=== PATIENT | female | born 1990 | race African-American/Black ===

== ENCOUNTER 2016-12-01 06:44 | Emergency (ER) ==
[2016-12-01 06:47] VITALS: BP 131/87; TEMP 97.6; BMI 24.2
--- NOTE | 2016-12-01 06:55 | ED.PDOC ---
General ED Provider: Dr. KELLE WINCHESTER-ER Chief Complaint: Tooth Problem Stated Complaint: my tooth hurts Time Seen by Physician: 06:52 Mode of Arrival: Walk-In Information Source: Patient Exam Limitations: No limitations Nursing and Triage Documentation Reviewed and Agree: Yes EENT Complaint Exam - Dental/Oral Complaint/Exam Mechanism of Injury: No known trauma Onset/Duration: 2 days Symptoms Are: Still present Timing: Constant Initial Severity: Mild Current Severity: Moderate Location: left premolar Character: Reports: Dull, Aching, Throbbing Aggravating: Reports: Heat, Cold, Chewing Alleviating: Reports: None Associated Signs and Symptoms: Reports: Swelling. Denies: Discharge, Fever, Foul odor, Foul taste in mouth Related History: Reports: Similar episode, Previous tooth problem Cardiac Risk Factors: Reports: Smoking Dental/Oral Surgical History: Reports: None Tooth Findings: Present: Percussion tenderness, Gross caries Cervical Lymphadenopathy Present: No Facial Swelling Present: No Bleeding Present: No Oropharynx Findings: Absent: Clots, Active bleeding Septal Hematoma: No Foreign Body Present: No Dysphagia Present: No Drooling Present: No Asymmetrical Tonsillar Swelling Present: No Uvula Midline: Yes Val-tonsillar Fluctuence: No Trismus Present: No Palatal Petechiae Present: No Scarlatinaform Rash Present: No Differential Diagnoses: Dental Caries Review of Systems - Review Of Systems Constitutional: Reports: No symptoms Eyes: Reports: No symptoms Ears, Nose, Mouth, Throat: Reports: Mouth pain Respiratory: Reports: No symptoms Cardiac: Reports: No symptoms GI: Reports: No symptoms : Reports: No symptoms Musculoskeletal: Reports: No symptoms Skin: Reports: No symptoms Neurological: Reports: No symptoms Endocrine: Reports: No symptoms Hematologic/Lymphatic: Reports: No symptoms All Other Systems: Reviewed and Negative Past Medical History - Past Medical History Endocrine: Reports: None Cardiovascular: Reports: None Respiratory: Reports: None Hematological: Reports: None Gastrointestinal: Reports: None Genitourinary: Reports: None Neuro/Psych: Reports: Anxiety Musculoskeletal: Reports: None Cancer: Reports: None Last Menstrual Period: depo - Surgical History General Surgical History: Reports: None - Family History Family History: Reports: Unknown - Social History Smoking Status: Never smoker Hx Substance Use: No Alcohol Screening: None Physical Exam - Physical Exam Appearance: Well-appearing, No pain distress, Well-nourished Pain Distress: Moderate Eyes: KRYSTINA, EOMI, Conjunctiva clear ENT: Ears normal, Nose normal, Oropharynx normal Neck: Supple Respiratory: Airway patent, Breath sounds clear, Breath sounds equal, Respirations nonlabored Cardiovascular: RRR, Pulses normal, No rub, No murmur GI/: Soft, Nontender, No masses, Bowel sounds normal, No Organomegaly Musculoskeletal: Normal strength, ROM intact, No edema, No calf tenderness Skin: Warm, Dry, Normal color Neurological: Sensation intact, Motor intact, Reflexes intact, Cranial nerves intact, Alert, Oriented Psychiatric: Affect appropriate, Mood appropriate Critical Care Note - Critical Care Note Total Time (mins): 0 Course - Course Vital Signs: Temp Pulse Resp BP Pulse Ox 12/01/16 06:44 97.6 F 97 H 18 131/87 99 Departure - Departure Time of Disposition: 06:54 Disposition: HOME SELF-CARE Discharge Problem: Dental abscess Instructions: Dental Abscess (ED) Condition: Good Pt referred to PMD for follow-up: Yes Additional Instructions: augmentin 875mg bid x 7days--norco 5mg q 4hrs prn pain #10--f/u dentist Allergies/Adverse Reactions: Allergies No Known Allergies Allergy (Verified 12/01/16 06:47) Home Medications: Ambulatory Orders Naproxen [Naprosyn] 500 mg PO Q12HR PRN #30 tablet 09/30/15 Disposition Discussed With: Patient
== END 2016-12-01 07:04 | disposition home or self-care (01) ==
LOC: ED 06:44
DX: K04.7 Periapical abscess without sinus (principal); K02.7 Dental root caries; F17.210 Nicotine dependence, cigarettes, uncomplicated
CPT/HCPCS: 99282

== ENCOUNTER 2018-07-14 05:47 | Emergency (ER) | payer OTHER ==
[2018-07-14 05:59] VITALS: BP 123/86; TEMP 97.4; BMI 25.3
[2018-07-14] MEDS ORDERED: DUONEB NEB STA (06:09)
[2018-07-14] MEDS ORDERED: SOLU-MEDROL 125 MG IVP STA (06:10)
--- NOTE | 2018-07-14 07:06 | ED.PDOC ---
General <ANNABELLAFranciscoKELLE TEJADA - Last Filed: 07/14/18 08:18> Stated Complaint: shortness of breath for the past day, worse tonight with cough productive of yellow sputum and sinus drainage. Time Seen by Physician: 06:00 Mode of Arrival: Walk-In Information Source: Patient Exam Limitations: No limitations Nursing and Triage Documentation Reviewed and Agree: Yes Does patient meet sepsis criteria?: No If yes, has appropriate treatment been initiated?: Yes System Inflammatory Response Syndrome: Pulse >90 BPM, Resp >20/Minute <TARIK POTTS - Last Filed: 07/15/18 06:01> ED Provider: Dr. TARIK POTTS Chief Complaint: Respiratory Complaint Sepsis Protocol: For patient's 13 years and over: Temp is 96.8 and below OR 101 and greater Pulse >90 BPM Resp >20/minute Acutely Altered Mental Status Are patient's symptoms suggestive of a new infection, such as: -Pneumonia -Skin, Soft Tissue -Endocarditis -UTI -Bone, Joint Infection -Implantable Device -Acute Abdominal Infection -Wound Infection -Meningitis -Blood Stream Catheter Infection -Unknown Respiratory Complaint Exam - Shortness of Air Complaint/Exam Onset/Duration: 1 day Symptoms Are: Still present Timing: Constant Initial Severity: Mild Current Severity: Moderate Character: Reports: Dyspnea at rest Aggravating: Reports: Weather Alleviating: Reports: None Associated Signs and Symptoms: Reports: Cough, Wheezing, Chest pain with cough ( chest tightness ), Rapid breathing, Labored breathing Pulmonary Embolism Risk Factors: Reports: None Cardiac Risk Factors: Reports: None Pseudomonas Risk Factors: Reports: None Tuberculosis Risk Factors: Reports: None Home Oxygen Use: No Recent Stress Test: No Recent Echo/LV Function: No Respiratory Distress: Moderate Stridor Present: No Tracheal Deviation: No Subcutaneous Emphysema: No Accessory Muscle Use: No Retractions: Not Present Diminished Breath Sounds: Yes Prolonged Expiratory Phase: No Unable to Speak Full Sentences: Yes Fatigue: No Leg Swelling: No Hansel's Sign Present: No Grunting Respirations: No Kussmaul Respirations: No Differential Diagnoses: Pneumonia, Bronchitis, Sinusitis, URI <TARIK POTTS - Last Filed: 07/15/18 06:01> Review of Systems - Review Of Systems Constitutional: Reports: No symptoms Eyes: Reports: No symptoms Ears, Nose, Mouth, Throat: Reports: Nose discharge Respiratory: Reports: Cough Cardiac: Reports: No symptoms GI: Reports: No symptoms : Reports: No symptoms Musculoskeletal: Reports: No symptoms Skin: Reports: No symptoms Neurological: Reports: No symptoms Endocrine: Reports: No symptoms Hematologic/Lymphatic: Reports: No symptoms All Other Systems: Reviewed and Negative <GILBERTKATHERYNTARIK Filed: 07/15/18 06:01> Past Medical History - Past Medical History Endocrine: Reports: None Cardiovascular: Reports: None Respiratory: Reports: None Hematological: Reports: None Gastrointestinal: Reports: None Genitourinary: Reports: None Neuro/Psych: Reports: Anxiety Musculoskeletal: Reports: None Cancer: Reports: None Last Menstrual Period: PERIODS ARE IRREGULAR AFTER , DELIVERED IN - Surgical History General Surgical History: Reports: None - Family History Family History: Reports: Unknown - Social History Smoking Status: Former smoker Hx Substance Use: No Alcohol Screening: Occasionally - Immunizations Tetanus Shot up to Date: Yes <TARIK POTTS Filed: 07/15/18 06:01> Physical Exam - Physical Exam Appearance: Well-appearing, No pain distress, Well-nourished Eyes: KRYSTINA, EOMI, Conjunctiva clear ENT: Ears normal, Nose normal, Oropharynx normal Neck: Supple Respiratory: Airway patent Cardiovascular: RRR, Pulses normal, No rub, No murmur GI/: Soft, Nontender, No masses, Bowel sounds normal, No Organomegaly Musculoskeletal: Normal strength, ROM intact, No edema, No calf tenderness Skin: Warm, Dry, Normal color Neurological: Sensation intact, Motor intact, Reflexes intact, Cranial nerves intact, Alert, Oriented Psychiatric: Affect appropriate, Mood appropriate <KELLE AMBROCIO Last Filed: 07/14/18 08:18> - Physical Exam Appearance: Ill-appearing Ill-appearing: Moderate Pain Distress: Mild Eyes: KRYSTINA, EOMI, Conjunctiva clear Neck: Supple Respiratory: Breath sounds diminished, Rhonchi (on the right ) Cardiovascular: No rub, No murmur, Tachycardia GI/: Soft, Nontender, No masses, Bowel sounds normal, No Organomegaly Musculoskeletal: Normal strength, ROM intact, No edema, No calf tenderness Skin: Warm, Dry, Normal color Neurological: Alert, Oriented Psychiatric: Anxious <DELROYTARIK Filed: 07/15/18 06:01> Interpretation - Radiology Interpretation Radiology Interpretation By: Radiologist Radiology Results: Negative Exam Interpreted: CXR <KELLE AMBROCIO Last Filed: 07/14/18 08:18> Re-Evaluation - Re-Evaluation Time of Re-Evaluation: 08:19 Status: Improved Vital Signs Stable: Yes Pain Level: 0 Appearance: NAD Lungs: Clear Skin: Warm and Dry Neuro: Alert and Oriented X3 CV: RRR <KELLE AMBROCIO - Last Filed: 07/14/18 08:18> Physician Notification - Case Discussed Endorsed To/Discussed With: Dr Rowan Time of Discussion: 07:19 <TARIK POTTS - Last Filed: 07/15/18 06:01> Critical Care Note - Critical Care Note Total Time (mins): 30 <TARIK POTTS - Last Filed: 07/15/18 06:01> Course - Course Hematology/Chemistry: 07/14/18 06:15 07/14/18 06:15 <KELLE AMBROCIO - Last Filed: 07/14/18 08:18> - Course Hematology/Chemistry: 07/14/18 06:15 07/14/18 06:15 <TARIK POTTS - Last Filed: 07/15/18 06:01> - Course Orders, Labs, Meds: Lab Review 07/14/18 07/14/18 07/14/18 06:09 06:15 06:15 WBC 6.20 RBC 4.66 Hgb 12.3 Hct 37.9 MCV 81.3 MCH 26.4 L MCHC 32.5 RDW Coeff of Jackie 16.8 H Plt Count 235 Immature Gran % (Auto) 0.2 Neut % (Auto) 52.3 Lymph % (Auto) 37.3 Imperial % (Auto) 8.1 Eos % (Auto) 1.6 Baso % (Auto) 0.5 Immature Gran # (Auto) 0.0 Neut # (Auto) 3.3 Lymph # (Auto) 2.3 Imperial # (Auto) 0.5 Eos # (Auto) 0.1 Baso # (Auto) 0.0 D-Dimer (Manual) Puncture Site Rrad O2 Saturation 96.0 ABG pH 7.422 ABG pCO2 35.9 ABG pO2 83.0 L ABG HCO3 23.4 ABG Total CO2 24 ABG Base Excess -1 Jed Test + FiO2 % 21.0 Sodium 136.0 L Potassium 4.00 Chloride 106.1 Carbon Dioxide 24.7 Anion Gap 9.20 BUN 10.0 Creatinine 0.58 L Estimated GFR (MDRD) 150.00 BUN/Creatinine Ratio 17.24 Glucose 109.3 H Calcium 8.81 Total Bilirubin 0.42 AST 24.4 ALT 27.9 Alkaline Phosphatase 79.0 Total Creatine Kinase 41.0 Troponin I < 0.012 Total Protein 6.83 Albumin 3.85 Globulin 2.98 Albumin/Globulin Ratio 1.29 Influ A Molecular Assay Influ B Molecular Assay 07/14/18 07/14/18 06:15 07:37 WBC RBC Hgb Hct MCV MCH MCHC RDW Coeff of Jackie Plt Count Immature Gran % (Auto) Neut % (Auto) Lymph % (Auto) Imperial % (Auto) Eos % (Auto) Baso % (Auto) Immature Gran # (Auto) Neut # (Auto) Lymph # (Auto) Imperial # (Auto) Eos # (Auto) Baso # (Auto) D-Dimer (Manual) 487.64 Puncture Site O2 Saturation ABG pH ABG pCO2 ABG pO2 ABG HCO3 ABG Total CO2 ABG Base Excess Jed Test FiO2 % Sodium Potassium Chloride Carbon Dioxide Anion Gap BUN Creatinine Estimated GFR (MDRD) BUN/Creatinine Ratio Glucose Calcium Total Bilirubin AST ALT Alkaline Phosphatase Total Creatine Kinase Troponin I Total Protein Albumin Globulin Albumin/Globulin Ratio Influ A Molecular Assay Negative by naat Influ B Molecular Assay Negative by naat Orders Category Date Time Status ABG DRAW REQUEST Stat CARDIO 07/14/18 06:10 Completed EKG-(ED ONLY) Stat CARDIO 07/14/18 06:09 Completed NEBULIZER TREATMENT Stat CARDIO 07/14/18 06:10 Completed ED IV/MEDIPORT/POWERPORT .ONCE EMERGENCY 07/14/18 06:09 Active ABG Stat LAB 07/14/18 06:09 Completed CBC W/ AUTO DIFF Stat LAB 07/14/18 06:15 Completed COMPREHENSIVE METABOLIC PANEL Stat LAB 07/14/18 06:15 Completed CREATINE KINASE Stat LAB 07/14/18 06:15 Completed D-DIMER Stat LAB 07/14/18 06:15 Completed FLU A/B MOLECULAR Stat LAB 07/14/18 07:37 Completed TROPONIN I Stat LAB 07/14/18 06:15 Completed 0.9 % Sodium Chloride [Saline Flush] MEDS 07/14/18 06:09 Discontinued 1 syr IVF PRN PRN Ipratropium/Albuterol Neb [Duoneb] MEDS 07/14/18 06:09 Discontinued 1 vial NEB ONCE STA Methylprednisolone Sod Succ/Pf [Solu-Medrol 125 mg] MEDS 07/14/18 06:10 Discontinued 125 mg IVP ONCE STA CHEST, 2 VIEWS PA & LAT Stat RADS 07/14/18 07:16 Completed Medications Discontinued Medications Generic Name Dose Route Start Last Admin Trade Name Chacho PRN Reason Stop Dose Admin Albuterol/Ipratropium 1 vial 07/14/18 06:09 07/14/18 06:38 Duoneb NEB 07/14/18 06:10 1 vial ONCE STA Administration Methylprednisolone Sodium Succinate 125 mg 07/14/18 06:10 07/14/18 06:25 Solu-Medrol 125 Mg IVP 07/14/18 06:11 125 mg ONCE STA Administration Sodium Chloride 1 syr 07/14/18 06:09 07/14/18 06:26 Saline Flush IVF 1 syr PRN PRN Administration To flush IV Vital Signs: Temp Pulse Resp BP Pulse Ox 07/14/18 05:47 97.4 F L 114 H 28 H 123/86 98 Departure - Departure Time of Disposition: 08:19 Pt referred to PMD for follow-up: Yes IPMP verified?: No Disposition Discussed With: Patient <KELLE AMBROCIO - Last Filed: 07/14/18 08:18> - Departure Pt referred to PMD for follow-up: Yes Disposition Discussed With: Patient <TARIK POTTS - Last Filed: 07/15/18 06:01> - Departure Disposition: HOME SELF-CARE Discharge Problem: Bronchitis Instructions: Acute Bronchitis (ED), Bronchospasm (ED) Condition: Stable Additional Instructions: stop smoking and dont get exposed to smoke==---augmentin 875mg bid x 7 days -- prednisone 20mg x 3 days then 10mg x 2 days then 5mg x 2 days--mucinex 600mg bid #30---albuterol inhaler 2 puffs qid --recheck with [facility] in 1-2 days or return if symptoms worsen Allergies/Adverse Reactions: Allergies No Known Allergies Allergy (Verified 07/14/18 05:59) Home Medications: Ambulatory Orders Naproxen [Naprosyn] 500 mg PO Q12HR PRN #30 tablet 09/30/15 Buspirone HCl 10 mg PO BID 07/14/18 Sertraline HCl 25 mg PO BEDTIME 07/14/18
--- NOTE | 2018-07-14 08:09 | DI ---
EXAM: PA and lateral views of the chest HISTORY: Cough COMPARISON: Chest x-ray 10/01/2008 FINDINGS: The cardiomediastinal silhouette is unchanged. There is no pneumothorax or pleural effusi on. There is no consolidation, nodule or mass. There is bilateral reticular ground-glass opacities a nd mild central lower lobe airway thickening. The osseous structures are unremarkable. IMPRESSION: Central lower lobe airway thickening and ground-glass suggestive of bronchitis bronchiol itis.
== END 2018-07-14 08:32 | disposition home or self-care (01) ==
LOC: ED 05:47
DX: J40 Bronchitis, not specified as acute or chronic (principal)
CPT/HCPCS: 36415; 80053; 82550; 82803; 84484; 85025; 85379; 87502; 93005; 93010; 94640; 96374; 99283

== ENCOUNTER 2018-09-11 08:40 | Outpatient (CLI) ==
[2018-07-19 08:58] VITALS: BMI 25.8
[2018-09-11 09:24] VITALS: BP 102/73; TEMP 97.6
[2018-09-11] MEDS ORDERED: HEPARIN 500 UNIT/5 ML (PORT ACCESS TRAY ONLY) IVF ONE (09:28)
[2018-09-11] MEDS ORDERED: SALINE FLUSH (PORT ACCESS TRAY USE ONLY) IVF ONE (09:29)
== END 2018-09-11 08:41 | disposition home or self-care (01) ==
LOC: OPMED 08:40
PROVIDERS: ATTEND Internal Medicine
DX: I50.21 Acute systolic (congestive) heart failure (principal); F41.9 Anxiety disorder, unspecified; I26.99 Other pulmonary embolism without acute cor pulmonale; I50.20 Unspecified systolic (congestive) heart failure; I42.8 Other cardiomyopathies; I50.43 Acute on chronic combined systolic (congestive) and diastolic (congestive) heart failure
CPT/HCPCS: 36415; 80053; 80061; 84443; 85025; 85610

== ENCOUNTER 2018-09-18 08:15 | Outpatient (CLI) ==
[2018-07-19 08:58] VITALS: BMI 25.8
[2018-09-18 08:55] VITALS: BP 101/70; TEMP 97.5
== END 2018-09-18 08:16 | disposition home or self-care (01) ==
LOC: LAB 08:15 → OPMED 08:16
PROVIDERS: ATTEND Internal Medicine
DX: I26.99 Other pulmonary embolism without acute cor pulmonale (principal); I50.20 Unspecified systolic (congestive) heart failure; I50.21 Acute systolic (congestive) heart failure; I42.8 Other cardiomyopathies; I50.43 Acute on chronic combined systolic (congestive) and diastolic (congestive) heart failure
CPT/HCPCS: 36415; 80048; 85027; 85610

== ENCOUNTER 2018-09-19 13:44 | Emergency (ER) ==
[2018-09-19 13:47] VITALS: BP 100/65; TEMP 97.8; BMI 23.1
--- NOTE | 2018-09-19 14:32 | ED.PDOC ---
General ED Provider: Dr. KELLE ARRIAZA Chief Complaint: Non-specific Complaint Stated Complaint: Hx having Central Line. Recently dx Cardiomyopathy post in June 2018. Dressing changed 2 days ago. Worried their appears like there is some drainage and shes worried about possible infection. Received IV Dobutamine at home, Time Seen by Physician: 14:10 Mode of Arrival: Walk-In Information Source: Patient, Family Exam Limitations: No limitations Primary Care Provider: SHEELA ALDRIDGE Referred to ED by: PCP Nursing and Triage Documentation Reviewed and Agree: Yes Does patient meet sepsis criteria?: No If yes, has appropriate treatment been initiated?: No System Inflammatory Response Syndrome: Not Applicable Sepsis Protocol: For patient's 13 years and over: Temp is 96.8 and below OR 101 and greater Pulse >90 BPM Resp >20/minute Acutely Altered Mental Status Are patient's symptoms suggestive of a new infection, such as: -Pneumonia -Skin, Soft Tissue -Endocarditis -UTI -Bone, Joint Infection -Implantable Device -Acute Abdominal Infection -Wound Infection -Meningitis -Blood Stream Catheter Infection -Unknown Review of Systems - Review Of Systems Constitutional: Reports: No symptoms Eyes: Reports: No symptoms Ears, Nose, Mouth, Throat: Reports: No symptoms Respiratory: Reports: No symptoms Cardiac: Reports: No symptoms GI: Reports: No symptoms : Reports: No symptoms Musculoskeletal: Reports: No symptoms Skin: Reports: No symptoms Neurological: Reports: No symptoms Endocrine: Reports: No symptoms Hematologic/Lymphatic: Reports: No symptoms All Other Systems: Reviewed and Negative Past Medical History - Past Medical History Previously Healthy: Yes Endocrine: Reports: None Cardiovascular: Reports: None, Other (cardiomyopathy and chf) Respiratory: Reports: None Hematological: Reports: None Gastrointestinal: Reports: None Genitourinary: Reports: None Neuro/Psych: Reports: Anxiety Musculoskeletal: Reports: None Cancer: Reports: None Last Menstrual Period: [id number] - Surgical History General Surgical History: Reports: None - Family History Family History: Reports: Unknown - Social History Smoking Status: Former smoker Hx Substance Use: No Alcohol Screening: Occasionally - Immunizations Tetanus Shot up to Date: No Physical Exam - Physical Exam Appearance: Well-appearing, No pain distress, Well-nourished Ill-appearing: None Pain Distress: None Eyes: KRYSTINA, EOMI, Conjunctiva clear ENT: Ears normal, Nose normal, Oropharynx normal Neck: Supple Respiratory: Airway patent, Breath sounds clear, Breath sounds equal, Respirations nonlabored Cardiovascular: RRR, Pulses normal, No rub, No murmur GI/: Soft, Nontender, No masses, Bowel sounds normal, No Organomegaly Musculoskeletal: Normal strength, ROM intact, No edema, No calf tenderness Skin: Warm (At site of Central line rt ant chest wall, no redness/scant serous drainage. no surrounding erythema), Dry, Normal color Neurological: Sensation intact, Motor intact, Reflexes intact, Cranial nerves intact, Alert, Oriented Psychiatric: Affect appropriate, Mood appropriate Critical Care Note - Critical Care Note Total Time (mins): 0 Course - Course Vital Signs: Temp Pulse Resp BP Pulse Ox 09/19/18 13:44 97.8 F 130 H 18 100/65 96 FLORENCIA Risk Score FLORENCIA Risk Score: Risk Score Odds of by 30D 0 0.1 (0.1-0.2) 1 0.3 (0.2-0.3) 2 0.4 (0.3-0.5) 3 0.7 (0.6-0.9) 4 1.2 (1.0-1.5) 5 2.2 (1.9-2.6) 6 3.0 (2.5-3.6) 7 4.8 (3.8-6.1) Departure - Departure Time of Disposition: 14:45 Disposition: HOME SELF-CARE Discharge Problem: cardiomyopathy, Dressing change Condition: Good Pt referred to PMD for follow-up: Yes IPMP verified?: Yes Additional Instructions: Follow with classroom teacher Report any changes in dressing or wound drainage Allergies/Adverse Reactions: Allergies No Known Allergies Allergy (Verified 09/19/18 13:47) Home Medications: Ambulatory Orders Buspirone HCl 10 mg PO BID 07/14/18 Sertraline HCl 25 mg PO BEDTIME 07/14/18 Lisinopril 2.5 mg PO DAILY 07/30/18 Norelgestromin/Ethin.estradiol [Xulane Patch] 1 each TD WEEKLY 07/30/18 Furosemide [Lasix] 40 mg PO DAILY 08/16/18 Warfarin Sodium 6 mg PO BEDTIME 08/16/18 Disposition Discussed With: Patient, Family Skin Complaint Exam - Skin/Soft Tissue Complaint/Exam Symptoms Are: Still present Initial Severity: Mild Current Severity: Mild Location: Rt ant chese wall Character: Denies: Redness, Swelling, Raised, Painful Aggravating: Reports: None Alleviating: Reports: None Associated Signs and Symptoms: Denies: Fever, Chills, Red streaks, Joint swelling Related History: Denies: Similar episode Skin Findings: Present: Normal findings, Other (site of tripple lumen cather insertion ant chest wall -erythrema). Absent: Erythema, Weeping skin, Wet ulceration Differential Diagnoses: Other (serous drainage-no signs of abscess)
== END 2018-09-19 15:15 | disposition home or self-care (01) ==
LOC: ED 13:44
DX: L98.9 Disorder of the skin and subcutaneous tissue, unspecified (principal); I42.9 Cardiomyopathy, unspecified
CPT/HCPCS: 87070; 87186; 99283

== ENCOUNTER 2018-09-20 16:38 | Emergency (ER) ==
[2018-09-20 16:47] VITALS: BMI 23.5
[2018-09-20] MEDS ORDERED: VANCOMYCIN 1 GM in SODIUM CHLORIDE 250 ML IV STA (17:14)
[2018-09-20] MEDS ORDERED: ZOSYN 3.375 GM 3.375 GM in SODIUM CHLORIDE 50 ML IV STA (17:14)
--- NOTE | 2018-09-20 17:51 | ED.PDOC ---
General ED Provider: Dr. BRIAN FRITZ Chief Complaint: Wound Check Stated Complaint: Was seen in the emergency room last for a drainage from the right chest port. no fever reported 1 day prior at home but today has a fever 103.8. No temp taken at home . pt went to work at a local [employer] felt unwell and returned to [employer] SHE DEVELOPED CARDIOMYOPATH AFTER THE OF HER SECOND CHILD IN THE . Time Seen by Physician: 16:40 (SEEN WITH HER NURSE KELL KWAN PT'S MOTHER ) Mode of Arrival: Walk-In Information Source: Patient Exam Limitations: No limitations Primary Care Provider: SHEELA ALDRIDGE Nursing and Triage Documentation Reviewed and Agree: Yes Does patient meet sepsis criteria?: Yes If yes, has appropriate treatment been initiated?: Yes System Inflammatory Response Syndrome: Temp 101F or Greater Sepsis Protocol: For patient's 13 years and over: Temp is 96.8 and below OR 101 and greater Pulse >90 BPM Resp >20/minute Acutely Altered Mental Status Are patient's symptoms suggestive of a new infection, such as: -Pneumonia -Skin, Soft Tissue -Endocarditis -UTI -Bone, Joint Infection -Implantable Device -Acute Abdominal Infection -Wound Infection -Meningitis -Blood Stream Catheter Infection -Unknown Review of Systems - Review Of Systems Constitutional: Reports: Chills, Fever, Malaise, Weakness, Loss of appetite Eyes: Reports: No symptoms Ears, Nose, Mouth, Throat: Reports: No symptoms Respiratory: Reports: Cough Cardiac: Reports: No symptoms GI: Reports: No symptoms : Reports: No symptoms Musculoskeletal: Reports: No symptoms Skin: Reports: No symptoms Neurological: Reports: No symptoms Endocrine: Reports: No symptoms Hematologic/Lymphatic: Reports: No symptoms All Other Systems: Reviewed and Negative Past Medical History - Past Medical History Previously Healthy: Yes Endocrine: Reports: None Cardiovascular: Reports: None, Other (cardiomyopathy and chf, WAS IN [facility] 2 WEEKS AGO AT [place] FOR FLUID OVER [facility] ) Respiratory: Reports: None Hematological: Reports: None Gastrointestinal: Reports: None Genitourinary: Reports: None, Other (DELIVERED A CHILC BACK IN BUT IT WAS A STILL ) Neuro/Psych: Reports: Anxiety Musculoskeletal: Reports: None Cancer: Reports: None Last Menstrual Period: now - Surgical History General Surgical History: Reports: None - Family History Family History: Reports: Unknown - Social History Smoking Status: Former smoker Hx Substance Use: No Alcohol Screening: None Physical Exam - Physical Exam Appearance: Ill-appearing Ill-appearing: Moderate Pain Distress: Mild Eyes: KRYSTINA, EOMI, Conjunctiva clear ENT: Ears normal, Nose normal, Oropharynx normal Respiratory: Rhonchi Cardiovascular: RRR, Pulses normal, No rub, No murmur GI/: Soft, Nontender, No masses, Bowel sounds normal, No Organomegaly Musculoskeletal: Normal strength, ROM intact, No edema, No calf tenderness Skin: Warm, Dry, Normal color Neurological: Sensation intact, Motor intact, Reflexes intact, Cranial nerves intact, Alert, Oriented Psychiatric: Affect appropriate, Mood appropriate Interpretation - Network Director Rate: Tachy Rhythm: Sinus - EKG Interpretation Rate: Tachy (SINU TACH WITH SHORT VT , LEFT ATRIAL ABNORMALITY(BIPHASIC P IN LEAD V1), MARKED LVH) Rhythm: Sinus Physician Notification - Case Discussed Physician Notified: SAM Brambila Time of Notification: 18:15 (TRANSFER ) Critical Care Note - Critical Care Note Total Time (mins): 0 Course - Course Hematology/Chemistry: 09/20/18 17:40 09/20/18 17:40 Orders, Labs, Meds: Lab Review 09/20/18 09/20/18 17:40 17:40 WBC 11.24 H D RBC 4.54 Hgb 12.2 Hct 37.3 MCV 82.2 MCH 26.9 L MCHC 32.7 RDW Coeff of Jackie 14.4 Plt Count 214 Immature Gran % (Auto) 0.4 Neut % (Auto) 95.0 Lymph % (Auto) 3.0 L [place] % (Auto) 1.2 Eos % (Auto) 0.2 Baso % (Auto) 0.2 Immature Gran # (Auto) 0.1 Neut # (Auto) 10.7 H Lymph # (Auto) 0.3 L [place] # (Auto) 0.1 L Eos # (Auto) 0.0 Baso # (Auto) 0.0 Sodium 136.8 Potassium 4.19 Chloride 102.1 Carbon Dioxide 22.7 Anion Gap 16.19 BUN 14.5 Creatinine 0.72 Estimated GFR (MDRD) 117.00 BUN/Creatinine Ratio 20.13 Glucose 108.0 H Calcium 9.15 Total Bilirubin 0.64 AST 21.4 ALT 19.3 Alkaline Phosphatase 68.8 Total Protein 7.47 Albumin 4.32 Globulin 3.15 Albumin/Globulin Ratio 1.37 Orders Category Date Time Status EKG-(ED ONLY) Stat CARDIO 09/20/18 18:00 Ordered BLOOD CULTURE (ED ONLY) Stat LAB 09/20/18 17:40 Received CBC W/ AUTO DIFF Stat LAB 09/20/18 17:40 Completed COMPREHENSIVE METABOLIC PANEL Stat LAB 09/20/18 17:40 Completed PARTIAL THROMBOPLASTIN TIME Stat LAB 09/20/18 17:40 Received PT WITH INR Stat LAB 09/20/18 17:40 Received SERUM Stat LAB 09/20/18 17:40 Received Piperacillin Sodium/Tazobactam [Zosyn 3.375 gm] 3.375 MEDS 09/20/18 17:14 Discontinued gm 0.9 % Sodium Chloride [Sodium Chloride] 50 ml IV ONCE Vancomycin HCl [Vancomycin] 1 gm MEDS 09/20/18 17:14 Discontinued 0.9 % Sodium Chloride [Sodium Chloride] [address] CHEST W/O CONTRAST Stat RADS 09/20/18 17:13 Ordered Medications Discontinued Medications Generic Name Dose Route Start Last Admin Trade Name Freq PRN Reason Stop Dose Admin Piperacillin Sod/Tazobactam 50 mls @ 50 mls/hr 09/20/18 17:14 Sod 3.375 gm/ Sodium Chloride IV 09/20/18 18:13 ONCE STA Vancomycin HCl 1 gm/ Sodium 250 mls @ 250 mls/hr 09/20/18 17:14 09/20/18 18: 04 Chloride IV 09/20/18 18:13 250 mls/hr ONCE STA Administration Vital Signs: Temp Pulse Resp BP Pulse Ox 09/20/18 18:00 103.9 F H 147 H 28 H 81/49 L 97 09/20/18 16:39 103.8 F H 82 20 98/62 98 Departure - Departure Time of Disposition: 19:00 Disposition: TSF SHORT-TRM HOSP Discharge Problem: cardiomyopathy PICC line infection Qualifiers: Encounter type: subsequent encounter Qualified Code(s): T80.219D - Unspecified infection due to central venous catheter, subsequent encounter Condition: Good Pt referred to PMD for follow-up: Yes IPMP verified?: No Allergies/Adverse Reactions: Allergies No Known Allergies Allergy (Verified 09/20/18 16:48) Home Medications: Ambulatory Orders Buspirone HCl 10 mg PO BID 07/14/18 Sertraline HCl 25 mg PO BEDTIME 07/14/18 Lisinopril 2.5 mg PO DAILY 07/30/18 Norelgestromin/Ethin.estradiol [Xulane Patch] 1 each TD WEEKLY 07/30/18 Furosemide [Lasix] 40 mg PO DAILY 08/16/18 Warfarin Sodium 6 mg PO BEDTIME 08/16/18 Transfer Form Completed: Yes Disposition Discussed With: Patient, Family
[2018-09-20] MEDS ORDERED: TYLENOL PO STA (20:43)
[2018-09-20] MEDS ORDERED: TYLENOL ONE (20:45)
[2018-09-20] MEDS ORDERED: ZOFRAN 4 MG/2 ML IVP STA (21:24)
[2018-09-21 01:53] VITALS: BP 79/45; TEMP 98.6
== END 2018-09-21 03:20 | disposition short-term general hospital (02) ==
LOC: ED 16:38
DX: T80.219D Unspecified infection due to central venous catheter, subsequent encounter (principal); O90.3 Peripartum cardiomyopathy
CPT/HCPCS: 36415; 80053; 84703; 85025; 85610; 85730; 87040; 87070; 87186; 93005; 93010; 96365; 96366; 99285

== ENCOUNTER 2018-10-09 10:29 | Outpatient (CLI) ==
[2018-10-09 10:50] VITALS: BP 102/72; TEMP 97.3
[2018-10-09] MEDS ORDERED: HEPARIN 500 UNIT/5 ML (PORT ACCESS TRAY ONLY) IVF ONE (10:54)
== END 2018-10-09 10:30 | disposition home or self-care (01) ==
LOC: OPMED 10:29
PROVIDERS: ATTEND Internal Medicine Cardiovascular Disease
DX: I50.22 Chronic systolic (congestive) heart failure (principal); Z99.81 Dependence on supplemental oxygen
CPT/HCPCS: 36415; 36591; 80053; 85025; 85610

== ENCOUNTER 2018-10-14 17:05 | Emergency (ER) ==
[2018-10-14 17:09] VITALS: BP 111/67; TEMP 97.9; BMI 23.2
--- NOTE | 2018-10-14 17:48 | ED.PDOC ---
General ED Provider: Dr. BRIAN FRITZ Chief Complaint: Palpitations Stated Complaint: palpitation Time Seen by Physician: 17:10 (seen with ELVIRA HICKS EMILY AT ALL TIMES ) Mode of Arrival: Walk-In Information Source: Patient Exam Limitations: No limitations Primary Care Provider: SHEELA ALDRIDGE Nursing and Triage Documentation Reviewed and Agree: Yes Does patient meet sepsis criteria?: No System Inflammatory Response Syndrome: Not Applicable Sepsis Protocol: For patient's 13 years and over: Temp is 96.8 and below OR 101 and greater Pulse >90 BPM Resp >20/minute Acutely Altered Mental Status Are patient's symptoms suggestive of a new infection, such as: -Pneumonia -Skin, Soft Tissue -Endocarditis -UTI -Bone, Joint Infection -Implantable Device -Acute Abdominal Infection -Wound Infection -Meningitis -Blood Stream Catheter Infection -Unknown Cardiovascular Complaint Exam - Palpitations Complaint/Exam Onset/Duration: 3 days ago had onsetof palpitation. pt had contacted bennett was told to Symptoms Are: Still present (, pt was instructed to come to ed) Timing: Intermittent Initial Severity: Mild Current Severity: Mild Character: Reports: Fast Aggravating: Reports: None Alleviating: Reports: None Associated Signs and Symptoms: Denies: Lightheadedness, Dizziness, Syncope, Chest pain, Shortness of breath, Diaphoresis, Nausea, Vomiting Related History: Similar episode Related Surgical History: Reports: None Cardiac Risk Factors: Reports: CHF (a port was placed in august become infected this is the second port) Pulmonary Embolism Risk Factors: Reports: None Thyroid Exam: Normal Differential Diagnoses: Cardiomyopathy, CAD, Hypoxia, Hyperventilation Quality Indicators for AMI: EKG in 10min. Quality Indicators for Cardiac Chest Pain: EKG in 10min. Quality Indicator For Non-Traumatic Chest Pain/Syncope: EKG Performed Review of Systems - Review Of Systems Constitutional: Reports: No symptoms Eyes: Reports: No symptoms Ears, Nose, Mouth, Throat: Reports: No symptoms Respiratory: Reports: No symptoms Cardiac: Reports: Palpitations GI: Reports: No symptoms : Reports: No symptoms Musculoskeletal: Reports: No symptoms Skin: Reports: No symptoms Neurological: Reports: No symptoms Endocrine: Reports: No symptoms Hematologic/Lymphatic: Reports: No symptoms All Other Systems: Reviewed and Negative Past Medical History - Past Medical History Previously Healthy: Yes Endocrine: Reports: None Cardiovascular: Reports: None, Other (cardiomyopathy and chf, WAS IN [facility] 2 WEEKS AGO AT [place] FOR FLUID OVER [place] ) Respiratory: Reports: None Hematological: Reports: None Gastrointestinal: Reports: None Genitourinary: Reports: None, Other (DELIVERED A CHILC BACK IN BUT IT WAS A STILL ) Neuro/Psych: Reports: Anxiety Musculoskeletal: Reports: None Cancer: Reports: None Last Menstrual Period: 3 weeks ago - Surgical History General Surgical History: Reports: None - Family History Family History: Reports: Unknown - Social History Smoking Status: Former smoker Hx Substance Use: No Alcohol Screening: None Physical Exam - Physical Exam Appearance: Well-appearing Ill-appearing: Mild Eyes: KRYSTINA, EOMI, Conjunctiva clear ENT: Ears normal, Nose normal, Oropharynx normal Respiratory: Airway patent, Breath sounds clear, Breath sounds equal, Respirations nonlabored Cardiovascular: Tachycardia GI/: Soft, Nontender, No masses, Bowel sounds normal, No Organomegaly Musculoskeletal: Normal strength, ROM intact, No edema, No calf tenderness Skin: Warm, Dry, Normal color Neurological: Sensation intact, Motor intact, Reflexes intact, Cranial nerves intact, Alert, Oriented Psychiatric: Affect appropriate, Mood appropriate 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 qing and elvira attempted blood draw hoever it was not sucessful. iasked the pt to allow me to start an external line pt refused . The pt also refused femoral line) - Re-Evaluation Time of Re-Evaluation: 18:33 (SEEN WITH STEPHANIE MCKINNEY , STILL REFUSING IV AT [facility] ) Status: Improved Vital Signs Stable: Yes Pain Level: 0 Appearance: NAD Skin: Warm and Dry Neuro: Alert and Oriented X3 CV: RRR Physician Notification - Case Discussed Physician Notified: HENRIQUE HERNANDEZ Time of Notification: 18:32 (ACCEPTED FOR TRANSFER.) Physician Notified: elicia Time of Notification: 19:00 Critical Care Note - Critical Care Note Total Time (mins): 0 Course - Course Hematology/Chemistry: 10/14/18 18:21 10/14/18 18:21 Orders, Labs, Meds: Lab Review 10/14/18 10/14/18 10/14/18 17:23 18:21 18:21 WBC 4.54 L RBC 4.13 L Hgb 10.4 L Hct 35.1 L MCV 85.0 MCH 25.2 L MCHC 29.6 L RDW Coeff of Jackie 14.9 H Plt Count 320 Immature Gran % (Auto) 0.0 Neut % (Auto) 31.9 Lymph % (Auto) 55.5 H Irwin % (Auto) 7.3 Eos % (Auto) 4.2 Baso % (Auto) 1.1 Immature Gran # (Auto) 0.0 Neut # (Auto) 1.5 L Lymph # (Auto) 2.5 Irwin # (Auto) 0.3 L Eos # (Auto) 0.2 Baso # (Auto) 0.1 PT 12.7 H INR 1.28 APTT 21.6 L Puncture Site Rr O2 Saturation 99.0 ABG pH 7.502 H* ABG pCO2 30.9 L ABG pO2 110.0 H ABG HCO3 24.2 ABG Total CO2 25 ABG Base Excess 1 Jed Test + FiO2 % 21.0 Sodium Potassium Chloride Carbon Dioxide Anion Gap BUN Creatinine Estimated GFR (MDRD) BUN/Creatinine Ratio Glucose Lactic Acid Calcium Total Bilirubin AST ALT Alkaline Phosphatase Total Creatine Kinase Troponin I Total Protein Albumin Globulin Albumin/Globulin Ratio Procalcitonin 10/14/18 10/14/18 10/14/18 18:21 18:21 18:21 WBC RBC Hgb Hct MCV MCH MCHC RDW Coeff of Jackie Plt Count Immature Gran % (Auto) Neut % (Auto) Lymph % (Auto) Irwin % (Auto) Eos % (Auto) Baso % (Auto) Immature Gran # (Auto) Neut # (Auto) Lymph # (Auto) Irwin # (Auto) Eos # (Auto) Baso # (Auto) PT INR APTT Puncture Site O2 Saturation ABG pH ABG pCO2 ABG pO2 ABG HCO3 ABG Total CO2 ABG Base Excess Jed Test FiO2 % Sodium 139.5 Potassium 4.63 Chloride 101.6 Carbon Dioxide 23.6 Anion Gap 18.93 BUN 15.8 Creatinine 0.65 Estimated GFR (MDRD) 132.00 BUN/Creatinine Ratio 24.30 Glucose 106.1 H Lactic Acid 1.78 Calcium 9.29 Total Bilirubin 0.63 AST 23.0 ALT 11.0 Alkaline Phosphatase 66.9 Total Creatine Kinase < 20.0 L Troponin I < 0.012 Total Protein 8.26 H Albumin 4.65 Globulin 3.61 Albumin/Globulin Ratio 1.28 Procalcitonin < 0.05 Orders Category Date Time Status ABG DRAW REQUEST Stat CARDIO 10/14/18 17:23 Completed EKG-(ED ONLY) Stat CARDIO 10/14/18 17:22 Completed TRANSFER TO OUTSIDE FACILITY .TO [facility] 10/14/18 18:34 Active ([facility] [place]) WRITE TRANSFER/SBAR NOTE ONCE CARE 10/14/18 18:35 Completed DISCHARGE ASSESSMENT ONCE DISCHARGE 10/14/18 18:35 Completed WRITE DISCHARGE NOTE ONCE DISCHARGE 10/14/18 18:35 Completed ABG Stat LAB 10/14/18 17:23 Completed BLOOD CULTURE Stat LAB 10/14/18 18:21 Results CBC W/ AUTO DIFF Stat LAB 10/14/18 18:21 Completed COMPREHENSIVE METABOLIC PANEL Stat LAB 10/14/18 18:21 Completed CREATINE KINASE Stat LAB 10/14/18 18:21 Completed LACTIC ACID Stat LAB 10/14/18 18:21 Completed PARTIAL THROMBOPLASTIN TIME Stat LAB 10/14/18 18:21 Completed PROCALCITONIN Stat LAB 10/14/18 18:21 Completed PT WITH INR Stat LAB 10/14/18 18:21 Completed TROPONIN I Stat LAB 10/14/18 18:21 Completed CHEST, 1V AP ONLY Stat RADS 10/14/18 18:18 Completed Vital Signs: Temp Pulse Resp BP Pulse Ox 10/14/18 17:06 97.9 F 103 H 20 111/67 99 FLORENCIA Risk Score FLORENCIA Risk Score: Risk Score Odds of by 30D 0 0.1 (0.1-0.2) 1 0.3 (0.2-0.3) 2 0.4 (0.3-0.5) 3 0.7 (0.6-0.9) 4 1.2 (1.0-1.5) 5 2.2 (1.9-2.6) 6 3.0 (2.5-3.6) 7 4.8 (3.8-6.1) Departure - Departure Time of Disposition: 19:00 Disposition: TSF SHORT-TRM HOSP Discharge Problem: Palpitations Instructions: Heart Palpitations (ED) Condition: Good Pt referred to PMD for follow-up: Yes IPMP verified?: No Allergies/Adverse Reactions: Allergies No Known Allergies Allergy (Verified 10/14/18 17:09) Home Medications: Ambulatory Orders Buspirone HCl 10 mg PO BID 07/14/18 Sertraline HCl 25 mg PO BEDTIME 07/14/18 Lisinopril 2.5 mg PO DAILY 07/30/18 Norelgestromin/Ethin.estradiol [Xulane Patch] 1 each TD WEEKLY 07/30/18 Warfarin Sodium 6 mg PO BEDTIME 08/16/18 Spironolactone 25 mg PO BID 10/14/18 Torsemide [Demadex] 20 mg PO BID 10/14/18 Disposition Discussed With: Patient
--- NOTE | 2018-10-14 19:17 | DI ---
EXAM: Chest 1 view. HISTORY: Cough. COMPARISON: 10/01/2008. FINDINGS: There is cardiomegaly with left IJ catheter seen with tip at the level of the cavoatrial j unction. No pulmonary infiltrate, pulmonary edema or pleural fluid is seen. No pneumothorax. Impression Cardiomegaly. No acute cardiopulmonary findings. No localized pulmonary consolidation or pneumonia.
== END 2018-10-14 20:50 | disposition short-term general hospital (02) ==
LOC: ED 17:05
DX: R00.2 Palpitations (principal)
CPT/HCPCS: 36415; 80053; 82550; 82803; 83605; 84145; 84484; 85025; 85610; 85730; 87040; 93005; 93010; 99285

== ENCOUNTER 2018-10-23 11:12 | Emergency (ER) ==
[2018-10-23 11:25] VITALS: BP 106/78; TEMP 97.4; BMI 23.3
[2018-10-23 12:34] LABS: URINE PREGNANCY TEST NEGATIVE (NEGATIVE)
--- NOTE | 2018-10-23 13:22 | DI ---
EXAM: Two views of the chest. History: Cough. Comparison: Chest radiograph 10/14/2018 Findings: Heart remains enlarged. No focal consolidation. No appreciable pleural fluid and no pneu mothorax. No acute osseous abnormalities. Right central line again seen in place. Impression: Cardiomegaly with no evidence for pulmonary edema. No change compared to the prior stud y.
--- NOTE | 2018-10-23 13:30 | ED.PDOC ---
General ED Provider: Dr. BRIAN FRITZ Chief Complaint: Arrhythmia Stated Complaint: HISTORY OF CHF . WAS IN OUT PT THE NURSE SAID THE PULSE IS RAPID Time Seen by Physician: 11:18 (NO RESP DISTRESS OR PAIN ACTIVE ALERT IN NO PAIN) Mode of Arrival: Wheelchair Information Source: Patient Primary Care Provider: SHEELA ALDRIDGE Nursing and Triage Documentation Reviewed and Agree: Yes Does patient meet sepsis criteria?: No System Inflammatory Response Syndrome: Not Applicable Sepsis Protocol: For patient's 13 years and over: Temp is 96.8 and below OR 101 and greater Pulse >90 BPM Resp >20/minute Acutely Altered Mental Status Are patient's symptoms suggestive of a new infection, such as: -Pneumonia -Skin, Soft Tissue -Endocarditis -UTI -Bone, Joint Infection -Implantable Device -Acute Abdominal Infection -Wound Infection -Meningitis -Blood Stream Catheter Infection -Unknown Review of Systems - Review Of Systems Constitutional: Reports: No symptoms Eyes: Reports: No symptoms Ears, Nose, Mouth, Throat: Reports: No symptoms Respiratory: Reports: Cough Cardiac: Reports: No symptoms GI: Reports: No symptoms : Reports: No symptoms Musculoskeletal: Reports: No symptoms Skin: Reports: No symptoms Neurological: Reports: No symptoms Endocrine: Reports: No symptoms Hematologic/Lymphatic: Reports: No symptoms All Other Systems: Reviewed and Negative Past Medical History - Past Medical History Previously Healthy: Yes Endocrine: Reports: None Cardiovascular: Reports: None, Other (cardiomyopathy and chf, WAS IN [facility] WEE[facility] A[facility] AT [place] FOR FLUID [facility] ) Respiratory: Reports: None Hematological: Reports: None Gastrointestinal: Reports: None Genitourinary: Reports: None, Other (DELIVERED A CHILC BACK IN BUT IT WAS A STILL ) Neuro/Psych: Reports: Anxiety Musculoskeletal: Reports: None Cancer: Reports: None Last Menstrual Period: now - Surgical History General Surgical History: Reports: None - Family History Family History: Reports: Unknown - Social History Smoking Status: Former smoker Hx Substance Use: No Alcohol Screening: None Physical Exam - Physical Exam Appearance: Well-appearing, No pain distress, Well-nourished Eyes: KRYSTINA, EOMI, Conjunctiva clear ENT: Ears normal, Nose normal, Oropharynx normal Respiratory: Airway patent, Breath sounds clear, Breath sounds equal, Respirations nonlabored Cardiovascular: RRR, Pulses normal, No rub, No murmur GI/: Soft, Nontender, No masses, Bowel sounds normal, No Organomegaly Musculoskeletal: Normal strength, ROM intact, No edema, No calf tenderness Skin: Warm, Dry, Normal color Neurological: Sensation intact, Motor intact, Reflexes intact, Cranial nerves intact, Alert, Oriented Psychiatric: Affect appropriate, Mood appropriate Interpretation - Radiology Interpretation Radiology Results: Negative Exam Interpreted: CXR Radiology Interpretation By: Radiologist - Lead Qa Analyst Rate: Tachy Rhythm: Sinus - EKG Interpretation Rate: Tachy (LVH) Rhythm: Sinus [place]: NL ST Segment: Other (ST DEPRESSION LEFT WALL MOSTLY CONSISTENT WITH LVH AND STRAIN EFFECT) Re-Evaluation - Re-Evaluation Time of Re-Evaluation: 12:00 Status: Improved Vital Signs Stable: Yes Pain Level: 0 Appearance: NAD Lungs: Clear Skin: Warm and Dry Neuro: Alert and Oriented X3 CV: Other (TACHYCARDIC RATE 120'S) - Re-Evaluation Status: Unchanged Vital Signs Stable: Yes Pain Level: 0 Appearance: NAD Skin: Warm and Dry Neuro: Alert and Oriented X3 CV: RRR (NO PAIN /NO S.O.B.) Critical Care Note - Critical Care Note Total Time (mins): 0 Course - Course Hematology/Chemistry: 10/23/18 11:58 10/23/18 11:58 Orders, Labs, Meds: Lab Review 10/23/18 10/23/18 10/23/18 11:40 11:58 11:58 WBC 5.33 RBC 4.20 Hgb 10.3 L Hct 33.9 L MCV 80.7 L MCH 24.5 L MCHC 30.4 L RDW Coeff of Jacike 14.6 Plt Count 349 Immature Gran % (Auto) 0.4 Neut % (Auto) 51.9 Lymph % (Auto) 36.2 [place] % (Auto) 9.6 Eos % (Auto) 1.1 Baso % (Auto) 0.8 Immature Gran # (Auto) 0.0 Neut # (Auto) 2.8 Lymph # (Auto) 1.9 [place]le # (Auto) 0.5 Eos # (Auto) 0.1 Baso # (Auto) 0.0 Sodium 138.9 Potassium 4.10 Chloride 100.3 Carbon Dioxide 25.8 Anion Gap 16.90 BUN 19.7 H Creatinine 0.64 Estimated GFR (MDRD) 134.00 BUN/Creatinine Ratio 30.78 Glucose 101.8 Lactic Acid Calcium 9.06 Total Bilirubin 0.64 AST 23.7 ALT 14.5 Alkaline Phosphatase 75.4 Total Creatine Kinase < 20.0 L Troponin I < 0.012 Total Protein 7.80 Albumin 4.57 Globulin 3.23 Albumin/Globulin Ratio 1.41 Procalcitonin Urine Test Influ A Molecular Assay Negative by naat Influ B Molecular Assay Negative by naat 10/23/18 10/23/18 10/23/18 11:58 11:58 12:25 WBC RBC Hgb Hct MCV MCH MCHC RDW Coeff of Jackie Plt Count Immature Gran % (Auto) Neut % (Auto) Lymph % (Auto) [place] % (Auto) Eos % (Auto) Baso % (Auto) Immature Gran # (Auto) Neut # (Auto) Lymph # (Auto) [place] # (Auto) Eos # (Auto) Baso # (Auto) Sodium Potassium Chloride Carbon Dioxide Anion Gap BUN Creatinine Estimated GFR (MDRD) BUN/Creatinine Ratio Glucose Lactic Acid 1.26 Calcium Total Bilirubin AST ALT Alkaline Phosphatase Total Creatine Kinase Troponin I Total Protein Albumin Globulin Albumin/Globulin Ratio Procalcitonin < 0.05 Urine Test Negative Influ A Molecular Assay Influ B Molecular Assay Orders Category Date Time Status EKG-(ED ONLY) Stat CARDIO 10/23/18 11:14 Completed BLOOD CULTURE Stat LAB 10/23/18 11:58 Received CBC W/ AUTO DIFF Stat LAB 10/23/18 11:58 Completed COMPREHENSIVE METABOLIC PANEL Stat LAB 10/23/18 11:58 Completed CREATINE KINASE Stat LAB 10/23/18 11:58 Completed FLU A/B MOLECULAR Stat LAB 10/23/18 11:40 Completed LACTIC ACID Stat LAB 10/23/18 11:58 Completed MOLECULAR GROUP A STREP Stat LAB 10/23/18 11:40 Completed TEST URINE [URINE ] Stat LAB 10/23/18 12:25 Completed PROCALCITONIN Stat LAB 10/23/18 11:58 Completed TROPONIN I Stat LAB 10/23/18 11:58 Completed CHEST, 2 VIEWS PA & LAT Stat RADS 10/23/18 11:14 Completed Vital Signs: Temp Pulse Resp BP Pulse Ox 10/23/18 11:14 97.4 F L 133 H 28 H 106/78 97 Departure - Departure Time of Disposition: 13:32 Disposition: HOME SELF-CARE Discharge Problem: Tachycardia Instructions: Tachycardia (ED) Condition: Good Pt referred to PMD for follow-up: Yes IPMP verified?: No Additional Instructions: Please call your Family Physician as soon as possible to schedule a follow-up appointment. Allergies/Adverse Reactions: Allergies No Known Allergies Allergy (Verified 10/14/18 17:09) Home Medications: Ambulatory Orders Buspirone HCl 10 mg PO BID PRN 07/14/18 Sertraline HCl 25 mg PO BEDTIME 07/14/18 Lisinopril 2.5 mg PO DAILY 07/30/18 Norelgestromin/Ethin.estradiol [Xulane Patch] 1 each TD WEEKLY 07/30/18 Warfarin Sodium 6 mg PO BEDTIME 08/16/18 Spironolactone 25 mg PO BID 10/14/18 Torsemide [Demadex] 20 mg PO BID 10/14/18 Famotidine [Pepcid] 20 mg PO DAILY 10/23/18
== END 2018-10-23 14:00 | disposition home or self-care (01) ==
LOC: ED 11:12
DX: R00.0 Tachycardia, unspecified (principal); Z79.01 Long term (current) use of anticoagulants; Z79.899 Other long term (current) drug therapy
CPT/HCPCS: 36415; 80053; 81025; 82550; 83605; 84145; 84484; 85025; 87040; 87502; 87651; 93005; 93010; 99284

== ENCOUNTER 2018-10-30 14:06 | Outpatient (CLI) ==
[2018-10-30 14:36] VITALS: BP 109/72; TEMP 98.1
== END 2018-10-30 14:07 | disposition home or self-care (01) ==
LOC: OPMED 14:06
PROVIDERS: ATTEND Internal Medicine
DX: I26.99 Other pulmonary embolism without acute cor pulmonale (principal); I50.20 Unspecified systolic (congestive) heart failure; I50.21 Acute systolic (congestive) heart failure; I42.8 Other cardiomyopathies; I50.43 Acute on chronic combined systolic (congestive) and diastolic (congestive) heart failure; Z45.2 Encounter for adjustment and management of vascular access device
CPT/HCPCS: 36415; 85610

== ENCOUNTER 2018-12-26 10:04 | Outpatient (CLI) | END 2018-12-26 10:05 | disposition home or self-care (01) | LOC: LAB 10:04 | PROVIDERS: ATTEND Internal Medicine | DX: Z95.811 Presence of heart assist device (principal) | CPT/HCPCS: 36415; 80053; 83615; 85025; 85610 ==

== ENCOUNTER 2019-01-06 13:35 | Outpatient (CLI) | END 2019-01-06 13:36 | disposition home or self-care (01) | LOC: LAB 13:35 | PROVIDERS: ATTEND Internal Medicine | DX: Z95.811 Presence of heart assist device (principal) | CPT/HCPCS: 36415; 80053; 85008; 85025; 85610 ==

== ENCOUNTER 2019-01-10 11:25 | Outpatient (CLI) | END 2019-01-10 11:26 | disposition home or self-care (01) | LOC: LAB 11:25 | PROVIDERS: ATTEND Internal Medicine | DX: Z95.811 Presence of heart assist device (principal) | CPT/HCPCS: 36415; 80053; 83615; 85025; 85610 ==

== ENCOUNTER 2019-01-30 08:21 | Outpatient (CLI) | END 2019-01-30 08:22 | disposition home or self-care (01) | LOC: LAB 08:21 | PROVIDERS: ATTEND Internal Medicine | DX: Z95.811 Presence of heart assist device (principal) | CPT/HCPCS: 36415; 80053; 83615; 85008; 85025; 85610 ==

== ENCOUNTER 2019-02-15 17:46 | Outpatient (CLI) | END 2019-02-15 18:10 | disposition short-term general hospital (02) | LOC: AMBL 17:46 | PROVIDERS: ATTEND Internal Medicine Geriatric Medicine | DX: R40.4 Transient alteration of awareness (principal); R47.81 Slurred speech; R29.810 Facial weakness; R00.0 Tachycardia, unspecified; Z95.811 Presence of heart assist device; W19.XXXA Unspecified fall, initial encounter; Z98.890 Other specified postprocedural states ==

== ENCOUNTER 2019-04-04 10:34 | Outpatient (CLI) | END 2019-04-04 10:35 | disposition home or self-care (01) | LOC: LAB 10:34 | PROVIDERS: ATTEND Internal Medicine | DX: Z95.811 Presence of heart assist device (principal) | CPT/HCPCS: 36415; 85610 ==

== ENCOUNTER 2019-04-11 10:32 | Outpatient (CLI) | END 2019-04-11 10:33 | disposition home or self-care (01) | LOC: LAB 10:32 | PROVIDERS: ATTEND Internal Medicine | DX: Z95.811 Presence of heart assist device (principal) | CPT/HCPCS: 36415; 80053; 83615; 85025; 85610 ==

== ENCOUNTER 2019-04-18 18:04 | Outpatient (CLI) | END 2019-04-18 18:22 | disposition short-term general hospital (02) | LOC: AMBL 18:04 | PROVIDERS: ATTEND Emergency Medicine | DX: M79.661 Pain in right lower leg (principal); R20.0 Anesthesia of skin; Z95.811 Presence of heart assist device ==

== ENCOUNTER 2019-04-23 21:45 | Outpatient (CLI) | END 2019-04-23 22:04 | disposition short-term general hospital (02) | LOC: AMBL 21:45 | PROVIDERS: ATTEND Family Medicine | DX: R53.1 Weakness (principal); R20.2 Paresthesia of skin; R20.0 Anesthesia of skin; Z86.73 Personal history of transient ischemic attack (TIA), and cerebral infarction without residual deficits; Z95.811 Presence of heart assist device ==